=== PATIENT | male | born 1985 | race Caucasian/White ===

== ENCOUNTER 2017-02-10 19:16 | Emergency (ER) | payer BC | END 2017-02-10 21:10 | disposition home or self-care (01) | LOC: ER 19:16 | DX: E86.0 Dehydration (principal); E87.6 Hypokalemia; Z87.442 Personal history of urinary calculi; Z88.0 Allergy status to penicillin; Z88.1 Allergy status to other antibiotic agents | CPT/HCPCS: 36415; 96360 ==